=== PATIENT | male | born 1945 | race Caucasian/White ===

== ENCOUNTER 2018-06-19 13:24 | Inpatient (IN) | payer MEDICARE | END 2018-06-21 18:24 | disposition home health service (06) | DRG 57 | LOC: ED 13:24 → ERH 16:48 → 5RSO 20:38 | DX: G30.9 Alzheimer's disease, unspecified (principal); F02.80 Dementia in other diseases classified elsewhere, unspecified severity, without behavioral disturbance, psychotic disturbance, mood disturbance, and anxiety; R62.7 Adult failure to thrive; E11.42 Type 2 diabetes mellitus with diabetic polyneuropathy; I10 Essential (primary) hypertension; R32 Unspecified urinary incontinence; R27.0 Ataxia, unspecified; E78.5 Hyperlipidemia, unspecified; R53.1 Weakness; R29.6 Repeated falls; Z79.4 Long term (current) use of insulin ==